=== PATIENT | male | born 1985 | race Hispanic/Latino ===

== ENCOUNTER 2018-02-10 15:05 | Emergency (ER) | payer BC ==
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
[2018-02-10] MEDS ORDERED: ONDANSETRON 4 MG/2 ML VIAL ONE ×2 (15:45→17:57)
[2018-02-10] MEDS ORDERED: NA CHLORIDE 0.9% 1,000 ML ONE ×2 (15:45→16:21)
[2018-02-10 16:05] LABS: Absolute Lymphocytes (CBC) 1.6 K/uL (0.7-4.9); Absolute Monocytes 0.4 K/uL (0.1-1.3); Absolute Neutrophil 6.1 K/uL (1.8-8.0); Basophils % 0.5 % (0-1.3); Eosinophils % 0.3 % (0-4.4); Hematocrit 55.4 % (39.6-49.0); Lymphocytes % 19.3 % (15.3-44.8); MCH 31.6 pg (27.0-35.0); MCV 94.4 fL (80-100); MPV 11.1 fL (7.6-11.3); RBC Red Blood Cell Count 5.87 M/uL (4.33-5.43)
[2018-02-10 16:21] LABS: Potassium 3.8 mmol/L (3.5-5.1)
[2018-02-10 16:22] LABS: Albumin 4.3 g/dL (3.4-5.0); Bilirubin Direct 0.1 mg/dL (0-0.2); Bilirubin Total 0.4 mg/dL (0.2-1.0)
[2018-02-10 16:55] LABS: Urine Blood NEGATIVE (NEG); Urine Glucose NEGATIVE (NEG); Urine Protein NEGATIVE (NEG); Urine Specific Gravity 1.025 (1.005-1.030)
[2018-02-10] MEDS ORDERED: LIDOCAINE VISCOUS 2% SOLN 15 ML UDC ONE (17:03)
[2018-02-10] MEDS ORDERED: MAGNE/ALUM HYDROXD 30 ML UCUP ONE (17:03)
--- NOTE | 2018-02-10 17:51 | ER ---
Nurse's Notes [facility] Name: Henrique Burdick Jr Age: 32 yrs Sex: Male : 1985 Arrival Date: 02/10/2018 Time: 15:09 Bed 28 Private MD: None, None Diagnosis: Vomiting, unspecified;Volume depletion Presentation: 02/10 15:23 Presenting complaint: Patient states: pt reports he has been staying in his care the sg last 3-4 days, but today he is here because i am not able to keep anything down. Pt reports having a hx of gastric ulcers, also has lost 25 pounds over the last month or so, also just now i am having some chest pain. I have had chest pain in the past. Transition of care: patient was not received from another setting of care. Onset of symptoms was February 10, 2018. Risk Assessment: Do you want to hurt yourself or someone else? Patient reports no desire to harm self or others. Initial Sepsis Screen: Does the patient meet any 2 criteria? No. Patient's initial sepsis screen is negative. Does the patient have a suspected source of infection? No. Patient's initial sepsis screen is negative. Care prior to arrival: None. 15:23 Method Of Arrival: Ambulatory sg 15:23 Acuity: KATHARINE 3 sg Triage Assessment: 16:07 GI: Reports vomiting. rv Historical: - Allergies: 15:23 NKDA; sg - PMHx: 15:25 None; sg - PSHx: 15:23 None; sg - Immunization history:: Adult Immunizations up to date. - Social history:: Smoking status: Patient uses tobacco products. - Ebola Screening: : Patient negative for fever greater than or equal to 101.5 degrees Fahrenheit, and additional compatible Ebola Virus Disease symptoms Patient denies exposure to infectious person Patient denies travel to an Ebola-affected area in the 21 days before illness onset No symptoms or risks identified at this time. Screenin:07 Abuse screen: Denies threats or abuse. Denies injuries from another. Nutritional rv screening: No deficits noted. Tuberculosis screening: No symptoms or risk factors identified. Fall Risk None identified. Assessment: 15:40 General: Appears in no apparent distress. comfortable, Behavior is calm, cooperative. rv 15:40 Pain: Complains of pain in abdomen. Neuro: Level of Consciousness is awake, alert, rv obeys commands, Oriented to person, place, time, situation. Cardiovascular: Capillary refill < 3 seconds. GI: Abdomen is flat, non-distended. : No signs and/or symptoms were reported regarding the genitourinary system. EENT: No signs and/or symptoms were reported regarding the EENT system. Derm: Skin is intact. Vital Signs: 15:24 BP 180 / 98; Pulse 53 MON; Resp 16; Temp 97.9; Pulse Ox 96% on R/A; Weight 73.48 kg; sg Pain 4/10; 16:19 BP 139 / 83; Pulse 50; Pulse Ox 98% on R/A; rv 17:13 BP 139 / 83; Pulse 50; Pulse Ox 100% on R/A; rv 18:23 BP 127 / 87; Pulse 50; Pulse Ox 100% on R/A; rv ED Course: 15:09 Patient arrived in ED. sb2 15:09 None, None is Private Physician. sb2 15:21 Andria Guillaume FNP-C [facility] snw 15:21 Omega Houser MD is Attending Physician. snw 15:24 Triage completed. sg 15:24 Arm band placed on. sg 16:07 Inserted saline lock: 20 gauge in right antecubital area, using aseptic technique. rv 16:08 Patient has correct armband on for positive identification. Bed in low position. Call rv light in reach. Side rails up X 1. Adult w/ patient. Pulse ox on. NIBP on. 18:22 No provider procedures requiring assistance completed. IV discontinued, bleeding rv controlled, No redness/swelling at site. Pressure dressing applied. Administered Medications: 15:52 Drug: NS 0.9% 1000 ml Route: IV; Rate: 1 bolus; Site: left antecubital; rv 18:25 Follow up: IV Status: Completed infusion rv 15:52 Drug: Zofran 4 mg Route: IVP; Site: left antecubital; rv 16:15 Follow up: Response: No adverse reaction; Nausea is decreased rv 18:24 Follow up: Response: No adverse reaction rv 16:20 Drug: NS 0.9% 1000 ml Route: IV; Rate: 1 bolus; Site: right antecubital; rv 18:24 Follow up: IV Status: Completed infusion rv 18:25 Drug: Zofran 4 mg Route: IVP; Site: right antecubital; rv 18:25 Follow up: Response: Medication administered at discharge. rv Outcome: 17:51 Discharge ordered by MD. bunch 18:22 Discharged to home ambulatory. rv 18:22 Condition: good 18:22 Discharge instructions given to patient, Instructed on discharge instructions, follow up and referral plans. medication usage, Prescriptions given X 2. 18:25 Patient left the ED. rv Signatures: David Kwon, RN RN sg Andria Guillaume FNP-C WORK TICKET DISTRIBUTOR-Ruth Reyes sb2 Reynaldo Calvert RN RN rv Corrections: (The following items were deleted from the chart) 15:26 15:23 Presenting complaint: Patient states: pt reports he has been staying in his care sg the last 3-4 days, but today he is here because i am not able to keep anything down. Pt reports having a hx of gastric ulcers, also has lost 25 pounds over the last month or so sg
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
== END 2018-02-10 18:25 | disposition home or self-care (01) ==
LOC: ER 15:05
DX: E86.9 Volume depletion, unspecified (principal); Z72.0 Tobacco use
CPT/HCPCS: 36415; 80048; 80076; 81003; 83690; 85025; 99284; J2405; J7030

== ENCOUNTER 2018-08-26 20:26 | Emergency (ER) | payer BC, SELFPAY ==
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
--- NOTE | 2018-08-26 21:21 | EDPHYS ---
Physician Documentation [facility] Name: Henrique Burdick Jr Age: 32 yrs Sex: Male : 1985 Arrival Date: 08/26/2018 Time: 20:30 Bed 14 Private MD: ED Physician Denis Mac HPI: 08/26 20:59 This 32 yrs old Male presents to ER via Ambulatory with complaints of jmm Numbness, shoulder, to finger tips. 21:12 The patient or guardian reports pain. Onset: The symptoms/episode began/occurred jmm gradually, 2 week(s) ago. This is a 32 year old male with no chronic medical conditions that presents to the ED with complaints of pain to his hands for the past 2 weeks worsened with wrist movement. Pain radiates to the finger tips. Patient is an funeral car driver. Patient denies neck pain. . Historical: - Allergies: 20:38 NKDA; aj1 - Home Meds: 20:38 None [Active]; aj1 - PMHx: 20:38 None; aj1 - PSHx: 20:38 None; aj1 - Immunization history:: Flu vaccine is not up to date. - Social history:: Smoking status: Patient uses tobacco products, smokes two packs cigarettes per day. - Ebola Screening: : Patient denies travel to an Ebola-affected area in the 21 days before illness onset. ROS: 21:12 Constitutional: Negative for fever, chills, and weight loss, Neck: Negative for injury, jmm pain, and swelling, Respiratory: Negative for shortness of breath, cough, wheezing, and pleuritic chest pain. 21:12 MS/extremity: Positive for pain, paresthesias. 21:12 All other systems are negative. Exam: 21:12 Constitutional: This is a well developed, well nourished patient who is awake, alert, jmm and in no acute distress. Head/Face: atraumatic. Eyes: EOMI, no conjunctival erythema appreciated ENT: Moist Mucus Membranes Neck: Trachea midline, Supple Chest/axilla: Normal chest wall appearance and motion. Cardiovascular: Regular rate and rhythm. No edema appreciated Respiratory: Normal respirations, no respiratory distress appreciated Abdomen/GI: Non distended, soft Skin: General appearance color normal 21:12 Musculoskeletal/extremity: positive phalens sign bilaterally, positive tinnels sign bilaterally, full manager unit strength bilaterall, NVI. 21:12 Skin: Appearance: Color: normal in color. 21:12 Neuro: Orientation: is normal, Mentation: is normal, Memory: is normal. 21:12 Psych: Behavior/mood is pleasant, cooperative. Vital Signs: 20:38 BP 143 / 95; Pulse 85; Resp 18; Temp 98.0; Pulse Ox 100% on R/A; Weight 75.75 kg; aj1 Height 6 ft. 0 in. (182.88 cm) (R); 21:20 BP 140 / 87; Pulse 83; Resp 19 S; Pulse Ox 100% on R/A; cc3 20:38 Body Mass Index 22.65 (75.75 kg, 182.88 cm) aj1 MDM: 20:59 Patient medically screened. [facility] 21:12 Data reviewed: vital signs, nurses notes. Data interpreted: Pulse oximetry: on room air jmm is 100 %. Interpretation: normal. Counseling: I had a detailed discussion with the patient and/or guardian regarding: the historical points, exam findings, and any diagnostic results supporting the discharge/admit diagnosis, the need for outpatient follow up, smoking cessation. ED course: PE FINDINGS CONSISTENT WITH CARPAL TUNNEL SYNDROME. PATIENT ADVISED TO FOLLOW UP WITH ORTHOPEDICS FOR FURTHER EVALUATION. . 08/26 20:59 Order name: Wrist Splint; Complete Time: 21:52 [facility] Administered Medications: 21:35 Drug: Ketorolac 60 mg Route: IM; Site: right gluteus; cc3 21:45 Follow up: Response: No adverse reaction; Pain is decreased cc3 Disposition: 08/27 07:46 Co-signature as Attending Physician, Denis Mac MD I agree with the assessment and wa plan of care. Disposition: 08/26/18 21:21 Discharged to Home. Impression: Carpal tunnel syndrome. - Condition is Stable. - Discharge Instructions: Carpal Tunnel Syndrome. - Prescriptions for Prednisone 20 mg Oral Tablet - take 3 tablet by ORAL route once daily for 5 days; 15 tablet. - Work release form, Medication Reconciliation Form, Thank You Letter, Antibiotic Education, Prescription Opioid Use form. - Follow up: David Chong MD; When: 2 - 3 days; Reason: Recheck today's complaints, Continuance of care, Re-evaluation by your physician. Follow up: Kamran Gregory MD; When: 2 - 3 days; Reason: Recheck today's complaints, Continuance of care, Re-evaluation by your physician. Signatures: Nancy Espinoza RN RN aj1 Samir Kent PA PA [facility] Denis Mac MD MD wa Cordel, Charlene cc3 Corrections: (The following items were deleted from the chart) 08/26 21:21 21:21 08/26/2018 21:21 Discharged to Home. Impression: Carpal tunnel syndrome. [facility] Condition is Stable. Forms are Medication Reconciliation Form, Thank You Letter, Antibiotic Education, Prescription Opioid Use. Follow up: David Chong; When: 2 - 3 days; Reason: Recheck today's complaints, Continuance of care, Re-evaluation by your physician. [facility] 21:52 21:21 08/26/2018 21:21 Discharged to Home. Impression: Carpal tunnel syndrome. cc3 Condition is Stable. Discharge Instructions: Carpal Tunnel Syndrome. Prescriptions for Prednisone 20 mg Oral Tablet - take 3 tablet by ORAL route once daily for 5 days; 15 tablet. and Forms are Medication Reconciliation Form, Thank You Letter, Antibiotic Education, Prescription Opioid Use. Follow up: David Chong; When: 2 - 3 days; Reason: Recheck today's complaints, Continuance of care, Re-evaluation by your physician. Follow up: Kamran Gregory; When: 2 - 3 days; Reason: Recheck today's complaints, Continuance of care, Re-evaluation by your physician. [facility]
--- NOTE | 2018-08-26 21:21 | ER ---
Nurse's Notes [facility] Name: Henrique Burdick Jr Age: 32 yrs Sex: Male : 1985 Arrival Date: 08/26/2018 Time: 20:30 Bed 14 Private MD: Diagnosis: Carpal tunnel syndrome Presentation: 08/26 20:35 Presenting complaint: Patient states: Numbness to bilateral arms for the past 2 weeks. aj1 Reports that everything feels really heavy when he tries to pick it up and his finger tips feel tingly. Reports that he was been waking up every night due to pain in both of his hands. Hand nut grinder are equal bilaterally, equal smile. Patient ambulated to triage with a steady gait. Speech is clear. Transition of care: patient was not received from another setting of care. Onset of symptoms was July 2018. Risk Assessment: Do you want to hurt yourself or someone else? Patient reports no desire to harm self or others. Initial Sepsis Screen: Does the patient meet any 2 criteria? No. Patient's initial sepsis screen is negative. Does the patient have a suspected source of infection? No. Patient's initial sepsis screen is negative. Care prior to arrival: None. 20:35 Method Of Arrival: Ambulatory aj1 20:35 Acuity: KATHARINE 3 aj1 Triage Assessment: 20:38 General: Appears in no apparent distress. comfortable, Behavior is calm, cooperative, aj1 appropriate for age. Pain: Complains of pain in right arm and left arm Pain currently is 7 out of 10 on a pain scale. Neuro: Level of Consciousness is awake, alert, obeys commands, Oriented to person, place, time, situation, Paedodontist are equal bilaterally Moves all extremities. Full function Gait is steady, Speech is normal, Facial symmetry appears normal, Numbness in right arm and left arm. Cardiovascular: Patient's skin is warm and dry. Respiratory: Airway is patent Respiratory effort is even, unlabored, Respiratory pattern is regular, symmetrical. Historical: - Allergies: 20:38 NKDA; aj1 - Home Meds: 20:38 None [Active]; aj1 - PMHx: 20:38 None; aj1 - PSHx: 20:38 None; aj1 - Immunization history:: Flu vaccine is not up to date. - Social history:: Smoking status: Patient uses tobacco products, smokes two packs cigarettes per day. - Ebola Screening: : Patient denies travel to an Ebola-affected area in the 21 days before illness onset. Screenin:03 Abuse screen: Denies threats or abuse. Denies injuries from another. Nutritional cc3 screening: No deficits noted. Tuberculosis screening: No symptoms or risk factors identified. Fall Risk Ambulatory Aid- None/Bed Rest/Nurse Assist (0 pts). Gait- Normal/Bed Rest/Wheelchair (0 pts) Mental Status- Oriented to own ability (0 pts). Assessment: 21:03 General: see triage assessment. cc3 21:45 Reassessment: Patient appears in no apparent distress at this time. Patient and/or cc3 family updated on plan of care and expected duration. Pain level reassessed. Patient is alert, oriented x 3, equal unlabored respirations, skin warm/dry/pink. CAT Kent discharged the patient home with prescription given. No IV cannula in situ. Patient left ER vitally stable and ambulatory with his . Vital Signs: 20:38 BP 143 / 95; Pulse 85; Resp 18; Temp 98.0; Pulse Ox 100% on R/A; Weight 75.75 kg; aj1 Height 6 ft. 0 in. (182.88 cm) (R); 21:20 BP 140 / 87; Pulse 83; Resp 19 S; Pulse Ox 100% on R/A; cc3 20:38 Body Mass Index 22.65 (75.75 kg, 182.88 cm) aj ED Course: 20:30 Patient arrived in ED. es 20:37 Triage completed. aj1 20:38 Arm band placed on Patient placed in an exam room. aj1 20:49 Samir Kent PA is PHCP. [facility] 20:49 Denis Mac MD is Attending Physician. jmm 21:03 Shannon Fletcher is Primary Nurse. cc3 21:03 Patient has correct armband on for positive identification. Bed in low position. Call cc3 light in reach. Side rails up X 1. Pulse ox on. NIBP on. 21:20 David Chong MD is Referral Physician. [facility] 21:21 Kamran Gregory MD is Referral Physician. [facility] 21:45 No provider procedures requiring assistance completed. Patient did not have IV access cc3 during this emergency room visit. Administered Medications: 21:35 Drug: Ketorolac 60 mg Route: IM; Site: right gluteus; cc3 21:45 Follow up: Response: No adverse reaction; Pain is decreased cc3 Outcome: 21:21 Discharge ordered by . keiry 21:45 Discharged to home ambulatory, with family. cc3 21:45 Condition: stable 21:45 Discharge instructions given to patient, family, Instructed on discharge instructions, follow up and referral plans. medication usage, Demonstrated understanding of instructions, follow-up care, medications, Prescriptions given X 1. 21:52 Patient left the ED. cc3 Signatures: Nancy Espinoza RN RN aj1 Samir Kent PA PA jmm Salyer, Edna es Cordel, Charlene cc3
[2018-08-26] MEDS ORDERED: KETOROLAC 30 MG/ML INJ ONE (21:39)
== END 2018-08-26 21:52 | disposition home or self-care (01) ==
LOC: ER 20:26
DX: G56.03 Carpal tunnel syndrome, bilateral upper limbs (principal); M79.641 Pain in right hand; F17.210 Nicotine dependence, cigarettes, uncomplicated
CPT/HCPCS: 96372; 99283